=== PATIENT | male | born 1985 | race Caucasian/White ===

== ENCOUNTER 2017-03-03 03:07 | Emergency (ER) | payer OTHER ==
[2017-03-03 03:21] VITALS: BP 131/81
--- NOTE | 2017-03-05 16:55 | CR ---
EXAM DATE: 03/03/17 PATIENT'S AGE: 31 Patient: [facility] Facility: [place], [place] Site . Site : 1985 Study: XRay Chest [id number]/20/2018 3:29:23 AM Ordering Physician: Doctor Vivas Final Report: INDICATION: SOB, CP INDICATION: Chest pain and shortness of breath. TECHNIQUE: Single view portable. FINDINGS: The heart size is upper limits of normal for AP technique. The lungs demonstrate no significant infiltrate. There is no pulmonary edema or pneumothorax. IMPRESSION: Clear chest. Dictated by Andrea Garcia MD @ 03/03/2017 4:25:05 AM Dictated by: Andrea Garcia MD @ 03/03/2017 04:25:14 (Electronic Signature) Report Signed by Proxy. [facility]
== END 2017-03-03 03:58 | disposition left against medical advice (07) ==
LOC: MW.ED 03:07
DX: Z53.21 Procedure and treatment not carried out due to patient leaving prior to being seen by health care provider (principal)
CPT/HCPCS: 71045; 71045-26; 80305; 81001; 93005; 99284-25

== ENCOUNTER 2017-04-07 01:37 | Emergency (ER) | payer BC ==
[2017-04-07 01:47] VITALS: BP 156/112
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
[2017-04-07] MEDS ORDERED: Ibuprofen 400 MG Tab PO ONE (02:54)
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
== END 2017-04-07 03:03 | disposition home or self-care (01) ==
LOC: MW.ED 01:37
DX: S06.0X9A Concussion with loss of consciousness of unspecified duration, initial encounter (principal); S16.1XXA Strain of muscle, fascia and tendon at neck level, initial encounter; F17.210 Nicotine dependence, cigarettes, uncomplicated; Y04.0XXA Assault by unarmed brawl or fight, initial encounter
CPT/HCPCS: 70450; 70486; 71045; 72125; 99284; A9270; 99283

== ENCOUNTER 2018-08-08 18:24 | Emergency (ER) | payer BC ==
--- NOTE | 2018-08-08 18:56 | EDM.PDOC ---
<Micheline Santacruz - Last Filed: 08/08/18 21:12> ED HPI GENERAL MEDICAL PROBLEM - General Chief Complaint: Chest Pain Stated Complaint: FEVER,VOMITING Time Seen by Provider: 08/08/18 18:27 Source of Information: Reports: Patient History Limitations: Reports: No Limitations - History of Present Illness INITIAL COMMENTS - FREE TEXT/NARRATIVE: HISTORY AND PHYSICAL: History of present illness: Patient is a 33-year-old male who presents with generalized abdominal pain and nausea that began two days ago. He has had two episodes of emesis yesterday and 1 episode today. His abdominal pain radiates up to his chest. He has been taking Tylenol with some relief. He has had decrease in appetite but is still able to drink water and eat crackers today. He states that he is a heavy alcohol drinker on the weekends. He has a history of an appendectomy but denies any other abdominal surgeries. Patient denies chest pain, shortness of breath, or cough. Denies headache, neck stiff ness, change in vision, syncope, or near syncope. Denies diarrhea, constipation or dysuria. Has not noted any blood in urine or stool. Review of systems: As per history of present illness and below otherwise all systems reviewed and negative. Past medical history: As per history of present illness and as reviewed below otherwise noncontributory. Surgical history: As per history of present illness and as reviewed below otherwise noncontributory. Social history: See social history for further information Family history: As per history of present illness and as reviewed below otherwise noncontributory. Physical exam: General: Patient is alert, oriented, and in no acute distress. Patient sitting comfortably on exam table. HEENT: Atraumatic, normocephalic, pupils equal and reactive bilaterally, negative for conjunctival pallor or scleral icterus, mucous membranes dry, TMs normal bilaterally, throat clear, neck supple, nontender, trachea midline. No drooling or trismus noted. No meningeal signs. No hot potato voice noted. Lungs: Clear to auscultation, breath sounds equal bilaterally, chest nontender. Heart: S1S2, regular rate and rhythm without overt murmur Abdomen: Soft, nondistended. Negative for masses or hepatosplenomegaly. Negative for costovertebral tenderness. Mild tenderness elicited at the umbilicus without guarding or rebound.. Pelvis: Stable nontender. Genitourinary: Deferred. Rectal: Deferred. Skin: Intact, warm, dry. No lesions or rashes noted. Extremities: Atraumatic, negative for cords or calf pain. Neurovascular unremarkable. Neuro: Awake, alert, oriented. Cranial nerves II through XII unremarkable. Cerebellum unremarkable. Motor and sensory unremarkable throughout. Exam nonfocal. Notes: Throughout stay in ED, patient did not have any emesis. Discussed the importance of following up with PCP. Voices understanding and is agreeable to plan of care. Denies any further questions or concerns at this time. Diagnostics: EKG, CXR, UA, Abd CT, lipase, CBC, CMP, troponin Therapeutics: 1L NS, zofran, toradol Prescription: Zofran Impression: Generalized abdominal pain Dehydration Plan: 1. Alternate ibuprofen and Tylenol for pain and discomfort. Take medication as prescribed. Small sips of water to prevent dehydration. 2. Follow up with primary care provider as discussed. Definitive disposition and diagnosis as appropriate pending reevaluation and review of above. Generalized Pain Score (Numeric/FACES): 5 - Related Data Allergies Allergy/AdvReac Type Severity Reaction Status Date / Time No Known Allergies Allergy Verified 08/08/18 19:15 Home Meds: Home Meds . [No Known Home Meds] 08/08/18 [History] Past Medical History HEENT History: Reports: None Cardiovascular History: Reports: None Respiratory History: Reports: None Gastrointestinal History: Reports: None Genitourinary History: Reports: None Musculoskeletal History: Reports: None Neurological History: Reports: None Psychiatric History: Reports: Anxiety, Depression, Suicidal Ideation Other Psychiatric History: pt states, "I think I'm depressed, I don't know, I'm punching tvs" Endocrine/Metabolic History: Reports: None Hematologic History: Reports: None Immunologic History: Reports: None Oncologic (Cancer) History: Reports: None Dermatologic History: Reports: None - Infectious Disease History Infectious Disease History: Reports: Chicken Pox - Past Surgical History Head Surgeries/Procedures: Reports: None GI Surgical History: Reports: Appendectomy Male Surgical History: Reports: None Social & Family History - Family History Family Medical History: Noncontributory - Caffeine Use Caffeine Use: Reports: Energy Drinks, Tea ED ROS GENERAL - Review of Systems Review Of Systems: ROS reveals no pertinent complaints other than HPI. ED EXAM, GENERAL - Physical Exam Exam: See Below (see dictation) Course - Vital Signs Last Recorded V/S: Last Vital Signs Temp 36.6 C 08/08/18 19:00 Pulse 75 08/08/18 19:33 Resp 11 L 08/08/18 19:33 BP 146/95 H 08/08/18 19:33 Pulse Ox 97 08/08/18 19:33 - Orders/Labs/Meds Orders: Active Orders 24 hr Category Date Time Status EKG Documentation Completion [RC] STAT Care 08/08/18 19:03 Active Labs: Laboratory Tests 08/08/18 08/08/18 08/08/18 Range/Units 18:40 18:40 19:50 WBC 5.52 (4.0-11.0) K/uL RBC 5.25 (4.50-5.90) M/uL Hgb 16.1 (13.0-17.0) g/dL Hct 47.1 (38.0-50.0) % MCV 89.7 (80.0-98.0) fL MCH 30.7 (27.0-32.0) pg MCHC 34.2 (31.0-37.0) g/dL RDW Std Deviation 43.5 (28.0-62.0) fl RDW Coeff of Martha 13 (11.0-15.0) % Plt Count 197 (150-400) K/uL MPV 9.20 (7.40-12.00) fL Neut % (Auto) 42.6 L (48.0-80.0) % Lymph % (Auto) 39.3 (16.0-40.0) % [place] % (Auto) 15.4 H (0.0-15.0) % Eos % (Auto) 1.6 (0.0-7.0) % Baso % (Auto) 1.1 (0.0-1.5) % Neut # (Auto) 2.4 (1.4-5.7) K/uL Lymph # (Auto) 2.2 (0.6-2.4) K/uL [place] # (Auto) 0.9 H (0.0-0.8) K/uL Eos # (Auto) 0.1 (0.0-0.7) K/uL Baso # (Auto) 0.1 (0.0-0.1) K/uL Nucleated RBC % 0.0 /100WBC Nucleated RBCs # 0 K/uL Sodium 141 (136-148) mmol/L Potassium 4.0 (3.5-5.1) mmol/L Chloride 107 (98-107) mmol/L Carbon Dioxide 27.5 (21.0-32.0) mmol/L BUN 13 (7.0-18.0) mg/dL Creatinine 1.2 (0.8-1.3) mg/dL Est Cr Clr Drug Dosing 106.60 mL/min Estimated GFR (MDRD) > 60.0 ml/min Glucose 89 (74-106) mg/dL Calcium 9.1 (8.5-10.1) mg/dL Total Bilirubin 0.5 (0.2-1.0) mg/dL AST 19 (15-37) IU/L ALT 33 (14-63) IU/L Alkaline Phosphatase 70 (46-116) U/L Troponin I < 0.050 (0.000-0.056) ng/mL Total Protein 7.9 (6.4-8.2) g/dL Albumin 4.1 (3.4-5.0) g/dL Globulin 3.8 (2.6-4.0) g/dL Albumin/Globulin Ratio 1.1 (0.9-1.6) Lipase 132 (73-393) U/L Urine Color YELLOW Urine Appearance CLEAR Urine pH 5.5 (5.0-8.0) Ur Specific [place] 1.015 (1.001-1.035) Urine Protein NEGATIVE (NEGATIVE) mg/dL Urine Glucose (UA) NEGATIVE (NEGATIVE) mg/dL Urine Ketones NEGATIVE (NEGATIVE) mg/dL Urine Occult Blood TRACE-INTACT H (NEGATIVE) Urine Nitrite NEGATIVE (NEGATIVE) Urine Bilirubin NEGATIVE (NEGATIVE) Urine Urobilinogen 0.2 (<2.0) EU/dL Ur Leukocyte Esterase NEGATIVE (NEGATIVE) Urine RBC 0-2 (0-2/HPF) Urine WBC 0-1 (0-5/HPF) Ur Epithelial Cells RARE (NONE-FEW) Urine Bacteria RARE (NEGATIVE) Meds: Medications Discontinued Medications Generic Name Dose Route Start Last Admin Trade Name Freq PRN Reason Stop Dose Admin Sodium Chloride 1,000 mls @ 999 mls/hr 08/08/18 19:02 08/08/18 19:20 Normal Saline IV 08/08/18 20:02 999 mls/hr BOLUS ONE Administration Iopamidol 100 ml 08/08/18 20:10 08/08/18 20:10 Isovue Multipack-370 (76%) IVPUSH 08/08/18 20:11 100 ml ONETIME STA Administration Ketorolac Tromethamine 30 mg 08/08/18 19:02 08/08/18 19:22 Toradol IVPUSH 08/08/18 19:03 30 mg ONETIME ONE Administration Ondansetron HCl 4 mg 08/08/18 19:02 08/08/18 19:20 Zofran IVPUSH 08/08/18 19:03 4 mg ONETIME ONE Administration Departure - Departure Time of Disposition: 21:13 Disposition: Home, Self-Care 01 Clinical Impression: Generalized abdominal pain, Dehydration Instructions: Dehydration, Adult, [id number], Abdominal Pain, Adult, Easy-to- Read Referrals: PCP,None [Primary Care Provider] - Forms: ED Department Discharge Additional Instructions: The following information is given to patients seen in the emergency department who are being discharged to home. This information is to outline your options for follow-up care. We provide all patients seen in our emergency department with a follow-up referral. The need for follow-up, as well as the timing and circumstances, are variable depending upon the specifics of your emergency department visit. If you don't have a primary care physician on staff, we will provide you with a referral. We always advise you to contact your personal physician following an emergency department visit to inform them of the circumstance of the visit and for follow-up with them and/or the need for any referrals to a consulting specialist. The emergency department will also refer you to a specialist when appropriate. This referral assures that you have the opportunity for follow-up care with a specialist. All of these measure are taken in an effort to provide you with optimal care, which includes your follow-up. Under all circumstances we always encourage you to contact your private physician who remains a resource for coordinating your care. When calling for follow-up care, please make the office aware that this follow-up is from your recent emergency room visit. If for any reason you are refused follow-up, please contact the [facility] Emergency Department at and asked to speak to the emergency department charge nurse. JONATHAN [facility] [address] [place] [address] [facility] [address] [place] [address] 1. Alternate ibuprofen and Tylenol for pain and discomfort. Take medication as prescribed. Small sips of water to prevent dehydration. 2. Follow up with primary care provider as discussed. - My Orders Last 24 Hours: My Active Orders 08/08/18 19:03 EKG Documentation Completion [RC] STAT - Assessment/Plan Last 24 Hours: My Active Orders 08/08/18 19:03 EKG Documentation Completion [RC] STAT <Elizabeth Rodriguez - Last Filed: 08/09/18 10:45> ED HPI GENERAL MEDICAL PROBLEM - History of Present Illness INITIAL COMMENTS - FREE TEXT/NARRATIVE: I have personally seen the patient and agree with the above note. Patient does not have any emesis while in the ED and able to tolerate PO intake. Patient agreeable to plan of care without any questions or concerns.
[2018-08-08] MEDS ORDERED: Ketorolac 30 MG/ML SDV IVPUSH ONE (19:02)
[2018-08-08] MEDS ORDERED: Sodium Chloride 0.9% 1,000 ML IV ONE (19:02)
[2018-08-08] MEDS ORDERED: Ondansetron 4 MG/2 ML SDV IVPUSH ONE (19:02)
[2018-08-08 19:27] LABS: CHLORIDE,CL 107 mmol/L (98-107); SODIUM,NA 141 mmol/L (136-148)
[2018-08-08 19:33] VITALS: BP 146/95
[2018-08-08] MEDS ORDERED: Iopamidol 755 MG/ML 500 ML Multipack Bottle IVPUSH STA (20:10)
--- NOTE | 2018-08-08 20:39 | CT ---
INDICATION: abdominal pain, vomiting CT ABDOMEN AND PELVIS WITH CONTRAST TECHNIQUE: Multidetector CT imaging was performed through the abdomen and pelvis following intravenous contrast administration. Coronal and sagittal reconstructions were generated. COMPARISON: None. FINDINGS: Included portions of the lower chest show the lung bases to be clear aside from minimal atelectasis, greatest on the left. The liver, spleen, gallbladder, pancreas, adrenals, and kidneys show no significant findings. Bowel loops are of normal caliber and demonstrate no wall thickening. The appendix is not seen but there are no findings to suggest appendicitis. No free fluid or free air is identified. The abdominal aorta appears normal in caliber. No abnormally enlarged lymph nodes are seen. The urinary bladder, prostate, and seminal vesicles are within normal limits. Visualized bones show no acute findings. IMPRESSION: No acute abnormality identified. No cause for the patient`s symptoms is evident. JEISON WESLEY MD [employer] Dictated by: Asif Wesley MD @ 08/08/2018 20:37:30 (Electronically Signed)
--- NOTE | 2018-08-08 20:41 | CR ---
INDICATION: pain, short of breath CHEST, ONE VIEW An AP radiograph of the chest was performed. Comparison: No previous studies are currently available for comparison. The lungs appear clear and no pleural effusions are identified. The cardiomediastinal silhouette and pulmonary vasculature appear normal, as do the visualized bones. IMPRESSION: No acute intrathoracic abnormality identified. JEISON WESLEY MD [employer] Dictated by: Asif Wesley MD @ 08/08/2018 20:39:54 (Electronically Signed)
== END 2018-08-08 21:51 | disposition home or self-care (01) ==
LOC: MW.ED 18:24
DX: E86.0 Dehydration (principal); R10.84 Generalized abdominal pain
CPT/HCPCS: 71045; 74177; 80053; 81001; 83690; 84484; 85025; 93005; 96361; 96374; 96375; 99284; J1885; J2405; J7040; Q9967

== ENCOUNTER 2019-02-05 10:46 | Emergency (ER) | payer BC ==
--- NOTE | 2019-02-05 10:55 | EDM.PDOC ---
ED HPI GENERAL MEDICAL PROBLEM - General Chief Complaint: General Stated Complaint: RASH Time Seen by Provider: 02/05/19 10:54 Source of Information: Reports: Patient History Limitations: Reports: No Limitations - History of Present Illness INITIAL COMMENTS - FREE TEXT/NARRATIVE: Is a 33-year-old male who is presenting with numerous complaints. Patient is having flulike symptoms feeling achy all over for the last several days with fever and chills. Denies any headache or any sinus pressure but does have a productive cough but it is worse than usual. She also is complaining having occasional dysuria symptoms but his second main complaint is that he has been having vomiting and diarrhea for the last 3 to 4 days. He has had only 2 or 3 diarrheal bowel movements will last 24 hours and feels a secondary to not being able to keep down fluids. Patient's third complaint is he does have a rash that is noted in both axilla and inguinal areas. This looks like a tinea corporis type rash. She denies any chest pain or pressure. He denies any palpitations. He is feeling somewhat lightheaded with standing. Duration: Day(s): (4 days) Location: Reports: Other (Both axilla and inguinal areas bilaterally consistent with tinea corporis.) Quality: Reports: Ache Severity: Moderate Improves with: Reports: None Worsens with: Reports: Breathing, Movement Associated Symptoms: Reports: Cough, cough w sputum, Fever/Chills, Malaise, Nausea/Vomiting, Rash. Denies: Diaphoresis chest with cough Pain Score (Numeric/FACES): 5 - Related Data Allergies Allergy/AdvReac Type Severity Reaction Status Date / Time No Known Allergies Allergy Verified 02/05/19 10:56 Home Meds: Home Meds . [No Known Home Meds] 08/08/18 [History] Past Medical History HEENT History: Reports: None Cardiovascular History: Reports: None Respiratory History: Reports: None Gastrointestinal History: Reports: None Genitourinary History: Reports: None Musculoskeletal History: Reports: None Neurological History: Reports: None Psychiatric History: Reports: Anxiety, Depression, Suicidal Ideation Other Psychiatric History: pt states, "I think I'm depressed, I don't know, I'm punching tvs" Endocrine/Metabolic History: Reports: None Hematologic History: Reports: None Immunologic History: Reports: None Oncologic (Cancer) History: Reports: None Dermatologic History: Reports: None - Infectious Disease History Infectious Disease History: Reports: Chicken Pox - Past Surgical History Head Surgeries/Procedures: Reports: None GI Surgical History: Reports: Appendectomy Male Surgical History: Reports: None Social & Family History - Family History Family Medical History: Noncontributory - Caffeine Use Caffeine Use: Reports: Energy Drinks, Tea ED ROS GENERAL - Review of Systems Review Of Systems: See Below Constitutional: Reports: Fever, Malaise, Weakness, Night Sweats, Decreased Appetite HEENT: Denies: Rhinitis, Throat Swelling Respiratory: Reports: Cough, Sputum Cardiovascular: Denies: Chest Pain, Dyspnea on Exertion, Palpitations GI/Abdominal: Reports: Diarrhea, Decreased Appetite : Reports: Dysuria Musculoskeletal: Reports: Muscle Pain. Denies: Neck Pain Skin: Reports: Rash Neurological: Reports: No Symptoms Psychiatric: Reports: No Symptoms ED EXAM, GENERAL - Physical Exam Exam: See Below Exam Limited By: No Limitations General Appearance: Alert, No Apparent Distress Throat/Mouth: Normal Inspection Head: Atraumatic, Normocephalic Neck: Normal Inspection, Supple, Non-Tender Respiratory/Chest: No Respiratory Distress, Lungs Clear, Normal Breath Sounds Cardiovascular: Regular Rate, Rhythm, No Edema, No JVD GI/Abdominal: Normal Bowel Sounds, Soft, Non-Tender, No Organomegaly Back Exam: Normal Inspection Extremities: Normal Inspection Neurological: Alert, Oriented Psychiatric: Normal Affect Skin Exam: Warm, Dry, Rash Course - Vital Signs Last Recorded V/S: Last Vital Signs Temp 36.7 C 02/05/19 10:52 Pulse 99 02/05/19 10:52 Resp 20 02/05/19 10:52 BP 152/93 H 02/05/19 10:52 Pulse Ox 97 02/05/19 10:52 - Orders/Labs/Meds Orders: Active Orders 24 hr Category Date Time Status EKG Documentation Completion [RC] STAT Care 02/05/19 11:13 Active UA W/MICROSCOPIC [URIN] Stat Lab 02/05/19 11:08 Ordered Sodium Chloride 0.9% [Normal Saline] 1,000 ml Med 02/05/19 12:20 Active IV .BOLUS Sodium Chloride 0.9% [Saline Flush] Med 02/05/19 11:08 Active 10 ml FLUSH ASDIRECTED PRN Sodium Chloride 0.9% [Saline Flush] Med 02/05/19 11:08 Active 2.5 ml FLUSH ASDIRECTED PRN Saline Lock Insert [OM.PC] Stat Oth 02/05/19 11:08 Ordered Medication Orders Sodium Chloride (Normal Saline) 1,000 mls @ 999 mls/hr IV .BOLUS ONE Stop: 02/05/19 13:20 Last Admin: 02/05/19 12:26 Dose: 999 mls/hr Sodium Chloride (Saline Flush) 10 ml FLUSH ASDIRECTED PRN PRN Reason: Keep Vein Open Last Admin: 02/05/19 11:19 Dose: 10 ml Sodium Chloride (Saline Flush) 2.5 ml FLUSH ASDIRECTED PRN PRN Reason: Keep Vein Open Last Admin: 02/05/19 11:18 Dose: 2.5 ml Labs: Laboratory Tests 02/05/19 02/05/19 Range/Units 10:58 10:58 WBC 4.26 (4.0-11.0) K/uL RBC 5.08 (4.50-5.90) M/uL Hgb 15.5 (13.0-17.0) g/dL Hct 45.4 (38.0-50.0) % MCV 89.4 (80.0-98.0) fL MCH 30.5 (27.0-32.0) pg MCHC 34.1 (31.0-37.0) g/dL RDW Std Deviation 43.3 (28.0-62.0) fl RDW Coeff of Martha 13 (11.0-15.0) % Plt Count 172 (150-400) K/uL MPV 9.20 (7.40-12.00) fL Neut % (Auto) 50.7 (48.0-80.0) % Lymph % (Auto) 31.5 (16.0-40.0) % [place] % (Auto) 16.4 H (0.0-15.0) % Eos % (Auto) 0.5 (0.0-7.0) % Baso % (Auto) 0.9 (0.0-1.5) % Neut # (Auto) 2.2 (1.4-5.7) K/uL Lymph # (Auto) 1.3 (0.6-2.4) K/uL [place] # (Auto) 0.7 (0.0-0.8) K/uL Eos # (Auto) 0.0 (0.0-0.7) K/uL Baso # (Auto) 0.0 (0.0-0.1) K/uL Nucleated RBC % 0.0 /100WBC Nucleated RBCs # 0 K/uL Sodium 138 (136-148) mmol/L Potassium 4.0 (3.5-5.1) mmol/L Chloride 101 (98-107) mmol/L Carbon Dioxide 25.5 (21.0-32.0) mmol/L BUN 10 (7.0-18.0) mg/dL Creatinine 1.1 (0.8-1.3) mg/dL Est Cr Clr Drug Dosing 116.29 mL/min Estimated GFR (MDRD) > 60.0 ml/min Glucose 91 (74-106) mg/dL Calcium 8.9 (8.5-10.1) mg/dL Total Bilirubin 0.5 (0.2-1.0) mg/dL AST 22 (15-37) IU/L ALT 37 (14-63) IU/L Alkaline Phosphatase 80 (46-116) U/L Total Protein 8.0 (6.4-8.2) g/dL Albumin 4.1 (3.4-5.0) g/dL Globulin 3.9 (2.6-4.0) g/dL Albumin/Globulin Ratio 1.1 (0.9-1.6) Meds: Medications Generic Name Dose Route Start Last Admin Trade Name Freq PRN Reason Stop Dose Admin Sodium Chloride 1,000 mls @ 999 mls/hr 02/05/19 12:20 02/05/19 12:26 Normal Saline IV 02/05/19 13:20 999 mls/hr .BOLUS ONE Administration Sodium Chloride 10 ml 02/05/19 11:08 02/05/19 11:19 Saline Flush FLUSH 10 ml ASDIRECTED PRN Administration Keep Vein Open Sodium Chloride 2.5 ml 02/05/19 11:08 02/05/19 11:18 Saline Flush FLUSH 2.5 ml ASDIRECTED PRN Administration Keep Vein Open Discontinued Medications Generic Name Dose Route Start Last Admin Trade Name Freq PRN Reason Stop Dose Admin Sodium Chloride 1,000 mls @ 999 mls/hr 02/05/19 11:08 02/05/19 11:17 Normal Saline IV 02/05/19 12:08 999 mls/hr BOLUS ONE Administration Ketorolac Tromethamine 30 mg 02/05/19 11:08 02/05/19 11:18 Toradol IVPUSH 02/05/19 11:09 30 mg ONETIME ONE Administration Ondansetron HCl 4 mg 02/05/19 11:08 02/05/19 11:19 Zofran IVPUSH 02/05/19 11:09 4 mg ONETIME ONE Administration - Re-Assessments/Exams Free Text/Narrative Re-Assessment/Exam: 02/05/19 13:02 Patient was positive for influenza B. The remainder of his labs look normal. Chest x-ray showed no acute disease. He is feeling much better and is able to keep down p.o. fluids. Discharging him home with a prescription for [place] and Zofran he will return to ER symptoms are worse. Departure - Departure Time of Disposition: 13:04 Disposition: Home, Self-Care 01 Condition: Good Clinical Impression: Influenza B, Dehydration - Discharge Information Referrals: Nisa Llanos [Primary Care Provider] - Forms: ED Department Discharge Additional Instructions: Increase rest and fluids. Ibuprofen as needed. [place] and Zofran as needed. To ER if worse. See PCP if not improving. Quit smoking cigarettes. Sepsis Event Note - Focused Exam Vital Signs: Vital Signs Temp Pulse Resp BP Pulse Ox 02/05/19 10:52 36.7 C 99 20 152/93 H 97 Date Exam was Performed: 02/05/19 Time Exam was Performed: 13:02 - My Orders Last 24 Hours: My Active Orders 02/05/19 11:08 UA W/MICROSCOPIC [URIN] Stat Sodium Chloride 0.9% [Saline Flush] 10 ml FLUSH ASDIRECTED PRN Sodium Chloride 0.9% [Saline Flush] 2.5 ml FLUSH ASDIRECTED PRN Saline Lock Insert [OM.PC] Stat 02/05/19 11:13 EKG Documentation Completion [RC] STAT 02/05/19 12:20 Sodium Chloride 0.9% [Normal Saline] 1,000 ml IV .BOLUS - Assessment/Plan Last 24 Hours: My Active Orders 02/05/19 11:08 UA W/MICROSCOPIC [URIN] Stat Sodium Chloride 0.9% [Saline Flush] 10 ml FLUSH ASDIRECTED PRN Sodium Chloride 0.9% [Saline Flush] 2.5 ml FLUSH ASDIRECTED PRN Saline Lock Insert [OM.PC] Stat 02/05/19 11:13 EKG Documentation Completion [RC] STAT 02/05/19 12:20 Sodium Chloride 0.9% [Normal Saline] 1,000 ml IV .BOLUS
[2019-02-05] MEDS ORDERED: Sodium Chloride 0.9% 1,000 ML IV ONE ×2 (11:08→12:20)
[2019-02-05] MEDS ORDERED: Sodium Chloride 0.9% 10 ML Syringe FLUSH PRN (11:08)
[2019-02-05] MEDS ORDERED: Sodium Chloride 0.9% 2.5 ML Syringe FLUSH PRN (11:08)
[2019-02-05] MEDS ORDERED: Ondansetron 4 MG/2 ML SDV IVPUSH ONE (11:08)
[2019-02-05] MEDS ORDERED: Ketorolac 30 MG/ML SDV IVPUSH ONE (11:08)
[2019-02-05 11:26] LABS: BLOOD UREA NITROGEN,BUN 10 mg/dL (7.0-18.0); CARBON DIOXIDE,CO2 25.5 mmol/L (21.0-32.0); CHLORIDE,CL 101 mmol/L (98-107); GLUCOSE RANDOM 91 mg/dL (74-106); SODIUM,NA 138 mmol/L (136-148)
--- NOTE | 2019-02-05 12:53 | CR ---
INDICATION: cough INDICATION: Cough. TECHNIQUE: Chest 2 views. COMPARISON: 08/08/2018. FINDINGS: Cardiovascular and mediastinum: Heart size and vasculature are normal in caliber and appearance. Mediastinum is within normal limits. Lungs and pleural spaces: Lungs are clear. No sign of infiltrate or mass. No sign of pleural effusion. No pneumothorax. Bones and soft tissues: No significant findings. IMPRESSION: Lungs are clear. Dictated by Gildardo Angel MD @ 02/05/2019 12:53:05 PM Dictated by: Gildardo Angel MD @ 02/05/2019 12:53:14 (Electronically Signed)
[2019-02-05 13:30] VITALS: BP 141/85; PULSE 74
== END 2019-02-05 13:30 | disposition home or self-care (01) ==
LOC: MW.ED 10:46
DX: J10.1 Influenza due to other identified influenza virus with other respiratory manifestations (principal); E86.0 Dehydration
CPT/HCPCS: 36415; 71046; 80053; 85025; 87804; 93005; 96361; 96374; 96375; 99284; J1885; J2405; J7030

== ENCOUNTER 2022-08-30 18:40 | Emergency (ER) | payer SELFPAY ==
[2022-08-30 19:35] VITALS: BP 135/94; PULSE 96
[2022-08-30] MEDS ORDERED: oxyCODONE 5 MG Tab PO STA (20:01)
[2022-08-30] MEDS ORDERED: Lidocaine/Epineph/Tetracaine 3 ML Syringe TOP STA (20:01)
[2022-08-30] MEDS ORDERED: Acetaminophen 500 MG Tab PO STA (20:02)
[2022-08-30] MEDS ORDERED: Ibuprofen 800 MG Tab PO STA (20:02)
[2022-08-30] MEDS ORDERED: Bacitracin Oint 1 GM U/D Packet TOP STA (21:42)
[2022-08-30] MEDS ORDERED: Sulfamethoxazole/Trimethoprim 800-160 MG Tab PO STA (21:42)
== END 2022-08-30 22:03 | disposition home or self-care (01) ==
LOC: MERGE 18:40 → MW.ED 18:40
DX: L98.492 Non-pressure chronic ulcer of skin of other sites with fat layer exposed (principal); Z79.899 Other long term (current) drug therapy
CPT/HCPCS: 99282; A9270

== ENCOUNTER 2022-11-11 19:59 | Emergency (ER) | payer OTHER ==
[2022-11-11] MEDS ORDERED: Sodium Chloride 0.9% 2.5 ML Syringe FLUSH PRN (20:01)
[2022-11-11] MEDS ORDERED: Sodium Chloride 0.9% 10 ML Syringe FLUSH PRN (20:01)
[2022-11-11] MEDS ORDERED: Ondansetron 4 MG/2 ML SDV IVPUSH STA (20:22)
[2022-11-11] MEDS ORDERED: Pantoprazole 80 MG in Sodium Chloride 0.9% 10 ML IVPUSH STA (20:22)
[2022-11-11] MEDS ORDERED: Sodium Chloride 0.9% 1,000 ML IV STA (20:22)
[2022-11-11 20:27] LABS: BASOPHILS ABSOLUTE AUTO 0.1 K/uL (0.0-0.1); EOSINOPHILS ABSOLUTE AUTO 0.1 K/uL (0.0-0.7); EOSINOPHILS PERCENT AUTO 1.2 % (0.0-7.0); HEMATOCRIT 45.6 % (38.0-50.0); LYMPHOCYTES ABSOLUTE AUTO 2.6 K/uL (0.6-2.4); LYMPHOCYTES PERCENT AUTO 43.5 % (16.0-40.0); MEAN CORPUSCULAR HEMOGLOBIN 31.4 pg (27.0-32.0); MEAN CORPUSCULAR HGB CONC 35.1 g/dL (31.0-37.0); MEAN CORPUSCULAR VOLUME 89.6 fL (80.0-98.0); MONOCYTES ABSOLUTE AUTO 0.3 K/uL (0.0-0.8); MONOCYTES PERCENT AUTO 5.5 % (0.0-15.0); NEUTROPHILS ABSOLUTE AUTO 2.9 K/uL (1.4-5.7); NEUTROPHILS PERCENT AUTO 48.8 % (48.0-80.0); NRBC ABSOLUTE 0 K/uL; PLATELET COUNT,PLT 234 K/uL (150-400); RED BLOOD CELL COUNT 5.09 M/uL (4.50-5.90); WHITE BLOOD CELL COUNT,WBC 6.02 K/uL (4.0-11.0)
[2022-11-11 20:53] LABS: ALBUMIN 3.9 g/dL (3.4-5.0); BILIRUBIN TOTAL 0.5 mg/dL (0.2-1.0); CALCIUM 8.4 mg/dL (8.5-10.1); CARBON DIOXIDE,CO2 25.9 mmol/L (21.0-32.0); CREATININE 0.8 mg/dL (0.8-1.3); EST CRCL DRUG DOSING (CG) 158.23 mL/min; POTASSIUM,K 3.1 mmol/L (3.5-5.1)
[2022-11-11 20:58] LABS: MAGNESIUM 1.9 mg/dL (1.8-2.4)
[2022-11-11 21:16] LABS: APPEARANCE,URINE CLEAR; BILIRUBIN,URINE NEGATIVE (NEGATIVE); COLOR,URINE YELLOW; GLUCOSE,URINE NEGATIVE (NEGATIVE); KETONES,URINE NEGATIVE (NEGATIVE); LEUKOCYTE ESTERASE,URINE NEGATIVE (NEGATIVE); NITRITE,URINE NEGATIVE (NEGATIVE); OCCULT BLOOD,URINE NEGATIVE (NEGATIVE); PROTEIN,URINE NEGATIVE (NEGATIVE); UROBILINOGEN,URINE 0.2 EU/dL (<2.0)
[2022-11-11 21:25] LABS: AMPHETAMINES SCREEN, URINE NEGATIVE (CUTOFF=500); BARBITURATE SCREEN,URINE NEGATIVE (CUTOFF=200); BENZODIAZEPINES SCREEN,URINE NEGATIVE (CUTOFF=150); BUPRENORPHINE SCREEN,URINE NEGATIVE (CUTOFF=10); METHADONE SCREEN, URINE NEGATIVE (CUTOFF=200); METHAMPHETAMINES SCREEN, URINE NEGATIVE (CUTOFF=500); OXYCODONE SCREEN,URINE NEGATIVE (CUT0FF=100); PCP SCREEN,URINE NEGATIVE (CUTOFF=25); PROPOXYPHENE SCREEN,URINE NEGATIVE (CUTOFF=300); THC SCREEN,URINE 20 NG/ML NEGATIVE (CUTOFF=50)
[2022-11-11 22:22] LABS: CORONAVIRUS COVID-19 NAA NEGATIVE (NEGATIVE); INFLUENZA A NAA NEGATIVE (NEGATIVE); INFLUENZA B NAA NEGATIVE (NEGATIVE)
[2022-11-11 22:45] VITALS: BP 149/99; PULSE 87
== END 2022-11-11 22:43 | disposition home or self-care (01) ==
LOC: MW.ED 19:59
DX: R07.9 Chest pain, unspecified (principal); K62.5 Hemorrhage of anus and rectum; M79.10 Myalgia, unspecified site; F10.10 Alcohol abuse, uncomplicated; Y90.8 Blood alcohol level of 240 mg/100 ml or more; Z20.822 Contact with and (suspected) exposure to COVID-19
CPT/HCPCS: 0240U; 36415; 71046; 80053; 80305; 80307; 81003; 82550; 83690; 83735; 84484; 85025; 93005; 96361; 96374; 96375; 99285; C9113; J2405; J3490; J7030; 93010; 99284